=== PATIENT | female | born 1960 | race Caucasian/White ===

== ENCOUNTER 2016-06-01 06:59 | Day surgery (SDC) | payer BC, OTHER ==
[~2016-06-01 06:59] MED LIST: LACTATED RINGERS SOLUTION 1,000 ML IV SCH
[2016-06-01 07:36] VITALS: BMI 25.5
[2016-06-01] MEDS ORDERED: PROPOFOL 60 ML ONE (07:52)
[2016-06-01] MEDS ORDERED: LIDOCAINE HCL/PF 2% SDV 5ML VIAL ONE (07:56)
[2016-06-01] MEDS ORDERED: SUCCINYLCHOLINE CHLORIDE 200 MG/10 ML VIAL ONE (07:56)
[2016-06-01 08:54] VITALS: TEMP 97.6
[2016-06-01 10:23] VITALS: BP 112/71; PULSE 57
--- NOTE | 2016-06-02 12:00 | PATH ---
Surgical Pathology Report Patient Name: BRENDA OSMAN [facility]. Rec. #: [id number] /Age/Gender: 1960 (Age: 56) / F Account: [id number] Location: [facility] Taken: 06/01/2016 Received: 06/01/2016 Reported: 06/02/2016 Physicians: Gamaliel Morales M.D. Specimen(s) Received BX STOMACH Clinical History Dysphagia, GERD, history of achalasia Hiatal hernia, gastropathy, GERD, esophageal dysmotility Final Diagnosis STOMACH, BIOPSY: GASTRIC FUNDIC MUCOSA WITH FOCAL MILD CHRONIC GASTRITIS. NO INTESTINAL METAPLASIA IDENTIFIED. IMMUNOSTAIN FOR H. PYLORI IS NEGATIVE. Electronically Signed Venu Langford M.D. Gross Description Received in formalin, labeled "biopsy stomach" is a hart, irregular portion of soft tissue measuring 0.6 cm. in greatest dimension. The specimen is submitted in toto in one cassette. 06/01/201606/01/2016
== END 2016-06-01 10:10 | disposition home or self-care (01) ==
LOC: JASU-ENDO 06:59
PROVIDERS: ATTEND Internal Medicine Gastroenterology
PROC: 0DB68ZX Excision of Stomach, Via Natural or Artificial Opening Endoscopic, Diagnostic (ICD-10-PCS; principal; 2016-06-01 08:00)
DX: K29.60 Other gastritis without bleeding (principal); K44.9 Diaphragmatic hernia without obstruction or gangrene; K22.4 Dyskinesia of esophagus
CPT/HCPCS: 88305-TC; 88342-TC